=== PATIENT | male | born 1950 | race Caucasian/White ===

== ENCOUNTER 2020-10-11 06:36 | Outpatient (CLI) | payer MEDICARE, SELFPAY ==
--- NOTE | ~2020-10-11 | CT_ITS ---
EXAMINATION: CT abdomen pelvis w con DATE: 10/11/2020 07:27 INDICATION: Prostate cancer. TECHNIQUE: Computed tomography (CT) of the abdomen and pelvis was performed with 100 mL Omnipaque 350 intravenous contrast. Automated exposure control and iterative reconstruction technique were employe d. The dose-length product was 1537.78 mGy-cm. COMPARISON: None. FINDINGS: The visualized portions of the lung bases demonstrates mild atelectasis. There is a small p neumatocele in right lower lobe. There is a 4 mm nodule in right middle lobe, likely benign. A calcif ied right lung nodule is consistent with old granulomatous disease. No pleural effusion. The heart si ze is normal. There are coronary artery calcifications. No pericardial effusion. There are pacer wire s in right atrium and right ventricle. The liver demonstrates hypertrophy of left lateral segment and surface nodularity, consistent with cirrhosis. The gallbladder, spleen, and pancreas are normal. The re are masses in the adrenal glands measuring up to 2.6 cm on the right measuring soft tissue attenua tion. There is a 4.0 cm mass in right kidney measuring soft tissue attenuation. There are simple cyst s in the kidneys measuring up to 3.2 cm on the right. There are 5 stones in left kidney measuring up to 8 mm. There is a left inguinal hernia containing fat. There are no dilated loops of bowel. There i s an umbilical hernia containing a wall of nonobstructed small bowel. The appendix is normal. There i s calcified atherosclerosis of the aorta and many of the other arteries. There are no pathologically enlarged lymph nodes. There is no free intraperitoneal fluid. There is moderate lumbar spondylosis. T here are chronic bilateral L5 pars defects. There are a few scattered sclerotic lesions measuring up to 6 mm, most likely benign bone islands. IMPRESSION: 1. Sclerotic lesions of bone measuring up to 6 mm, most likely benign bone islands. 2. 4.0 cm right kidney mass, which may be a hemorrhagic cyst or less likely a neoplasm. Abdomen CT wi thout and with contrast is recommended. 3. Adrenal masses measuring up to 2.6 cm on the right, most likely adenomas. Metastatic disease is un likely, but cannot be excluded. 4. Cirrhosis of the liver. 5. Umbilical hernia containing a wall of nonobstructed small bowel. Reviewed, dictated and finalized at location B. IMPRESSION: 1. Sclerotic lesions of bone measuring up to 6 mm, most likely benign bone maribel nds. 2. 4.0 cm right kidney mass, which may be a hemorrhagic cyst or less likely a n eoplasm. Abdomen CT without and with contrast is recommended. 3. Adrenal masses measuring up to 2.6 cm on the right, most likely adenomas. Me tastatic disease is unlikely, but cannot be excluded. 4. Cirrhosis of the liver. 5. Umbilical hernia containing a wall of nonobstructed small bowel.
--- NOTE | ~2020-10-11 | NM_ITS ---
EXAMINATION: NM bone scan whole body DATE: 10/11/2020 11:55 INDICATION: Prostate cancer TECHNIQUE: 26.4 mCi Tc-99m HDP was administered intravenously. Delayed whole-body scintigrams were o btained. COMPARISON: CT abdomen and pelvis dated 10/11/2020 FINDINGS: Photopenic defect at the right knee consistent with a right total knee arthroplasty. No abnormally in creased surrounding bone uptake to suggest loosening or infection. Scattered likely degenerative join t centered uptake most prominent at the bilateral hands and feet, left knee, bilateral acromioclavicu lar and sternoclavicular joints. Increased uptake at the anterior left first rib and typical location for hypertrophic costochondral calcification. Additional likely degenerative uptake in the spine ass ociated with multilevel facet joint and multiple bridging osteophytes in the visualized mid to lower thoracic spine consistent with diffuse idiopathic skeletal hyperostosis (DISH). Small focus of mild u ptake associated with the xiphoid resulting from the anteriorly curved configuration of the xiphoid p rocess as seen on the CT images. No suspicious foci of abnormal bone uptake to suggest metastatic dis ease. There is diffuse mild increased bone and soft tissue uptake in the bilateral lower legs which s uggests decreased washout such as in the setting of venous stasis. IMPRESSION: 1. No lesion suspicious for metastatic disease. 2. Typical pattern of scattered degenerative uptake in the axial and appendicular skeleton. 3. Diffuse mildly increased uptake in the bones and soft tissues of the bilateral lower legs suggesti ng reduced washout images in the setting of venous insufficiency. Reviewed, dictated and finalized at location A. IMPRESSION: 1. No lesion suspicious for metastatic disease. 2. Typical pattern of scattered degenerative uptake in the axial and appendicul ar skeleton. 3. Diffuse mildly increased uptake in the bones and soft tissues of the bilater al lower legs suggesting reduced washout images in the setting of venous insuff iciency.
[2020-10-11 07:16] LABS: Estimated Glomerular Filt Rate > 60
== END 2020-10-11 06:37 | disposition home or self-care (01) ==
PROVIDERS: PCP Internal Medicine; Visit Provider Urology
DX: C61 Malignant neoplasm of prostate (principal); N28.89 Other specified disorders of kidney and ureter; K74.60 Unspecified cirrhosis of liver
CPT/HCPCS: 74177; 78306; A9561; Q9967

== ENCOUNTER 2020-11-06 08:17 | Outpatient (CLI) | payer MEDICARE, SELFPAY ==
--- NOTE | ~2020-11-06 | CT_ITS ---
EXAMINATION: CT abdomen wo/w con EXAM DATE: 11/06/2020 08:57 INDICATION: Renal mass, hemorrhagic cyst versus solid mass on recent CT. Prostate cancer. TECHNIQUE: Spiral CT of the abdomen was performed without and then with intravenous injection of 100 mL Omnipaque 350. Axial, coronal and sagittal images of the abdomen were reviewed. The dose-length product (DLP) for this examination was 2039.18 mGy-cm. The exposure was tailored according to patie nt size (auto mA exposure control), and iterative reconstruction (ASIR) was used as additional dose r eduction technique. Correlation is made to head CT 10/11/2020. FINDINGS: Noncontrast CT demonstrates bilateral nephrolithiasis, with 6 mm left inferior calyceal sto ne, and several other punctate bilateral calyceal stones. There are bilateral renal cysts and hemorrh agic cysts which are exophytic, measuring up to 3.8 cm on the right. No suspicious renal lesions. No hydronephrosis. Possible cirrhosis. There is 2.7 cm right adrenal mass, and 1.6 cm left adrenal mass, both are low at tenuation on noncontrast study consistent with adenomas. Spleen, pancreas are unremarkable. Gallblad radha is unremarkable. No biliary obstruction. There is no retroperitoneal lymphadenopathy. Ther e is moderate scattered arteriosclerotic disease. The stomach and small bowel are unremarkable. There is expected amount of colonic stool. No free i ntraperitoneal gas. Cardiac pacemaker/AICD leads. Large calcified right lower lobe granuloma. Some dependent groundglass opacity probably atelectasis. There are no osteoblastic or osteolytic lesions identified. IMPRESSION: 1. Bilateral renal cysts. 2. Possible cirrhosis. 3. Adrenal adenomas. Reviewed, dictated and finalized at location A.
== END 2020-11-06 08:18 | disposition home or self-care (01) ==
LOC: ANHIMG 08:22
PROVIDERS: PCP Internal Medicine; Visit Provider Urology
DX: N28.1 Cyst of kidney, acquired (principal); D35.00 Benign neoplasm of unspecified adrenal gland
CPT/HCPCS: 74170; Q9967

== ENCOUNTER 2023-01-27 01:52 | Day surgery (SDC) | payer MEDICARE, SELFPAY ==
[2023-01-13 14:16] VITALS: BMI 44.3
--- NOTE | 2023-01-24 16:07 | PM.HPGS ---
History of Present Illness History of Present Illness Consent: Risks, benefits, and alternatives have been discussed and questions answered. Patient agrees to proceed with procedure. Chief complaint: other fecal abnormalities Narrative: Hardik Castellon is a 72 year old male Was referred for colon cancer screening. His last colonoscopy was 9 years ago. Recent Cologuard test was positive. Review of Systems Review of Systems: All systems reviewed & are unremarkable except as noted in HPI and below PMFSH Social History Social History Smoking packs per day: 1 Smoking cigarettes per day: 20.0 Smoking status: Former smoker Tobacco type: cigarettes Living arrangements: with family Meds Home Medications and Allergies Home Medications Medication Instructions Recorded Confirmed Type apixaban 5 mg tablet (Eliquis) 5 mg PO DAILY 01/13/23 01/27/23 History atorvastatin 20 mg tablet 20 mg PO DAILY 01/13/23 01/27/23 History furosemide 40 mg tablet 40 mg PO DAILY 01/13/23 01/27/23 History glimepiride 4 mg tablet 4 mg PO DAILY 01/13/23 01/27/23 History hydralazine 25 mg tablet 25 mg PO DAILY 01/13/23 01/27/23 History insulin glargine U-300 conc 300 40 unit subcut BID 01/13/23 01/27/23 History unit/mL (3 mL) subcutaneous pen (Toujeo Max U-300 SoloStar) isosorbide dinitrate 10 mg tablet 10 mg PO DAILY 01/13/23 01/27/23 History metformin 1,000 mg tablet 1,000 mg PO DAILY 01/13/23 01/27/23 History potassium citrate 10 mEq (1,080 1,080 meq PO DAILY 01/13/23 01/27/23 History mg) tablet,extended release valsartan 320 mg tablet 320 mg PO DAILY 01/13/23 01/27/23 History Allergies Allergy/AdvReac Type Severity Reaction Status Date / Time No Known Allergies Allergy Verified 01/27/23 06:48 Exam Const: General: alert Orientation/consciousness: patient oriented x3 Resp: Auscultation: clear to auscultation bilaterally Cardio: Rhythm: regular rhythm GI: GI Palp: Yes Soft to palpation and No Tenderness to palpation present (GI) Neuro: General: patient oriented x3 Assessment and Plan Assessment and plan (1) Colon cancer screening: Code(s): Z12.11 - Encounter for screening for malignant neoplasm of colon Status: Acute Assessment and Plan: Colonoscopy with possible biopsy or polypectomy or cautery or injection of substances.
[2023-01-27 06:55] VITALS: BP 135/61; PULSE 88; RESP 22; TEMP 35.9; O2SAT 94
[2023-01-27] MEDS: LACTATED RINGERS 1,000 ML 150 ML IV CONT (07:08)
[2023-01-27 07:09] LABS: Glucose Point of Care 171 mg/dl (65-105)
--- NOTE | 2023-01-27 07:44 | P.PNAN_ITS ---
Anes - Initial Pre Proc Eval Procedure: Operation Date: 01/27/23 08:00 Proposed Procedures p Colonoscopy - Lester Vaca MD Date/Time: 01/27/23 07:44 Surgeon: Lester Vaca MD Pre Op Diagnosis: other fecal abnormalities Patient Data Age: 72 Gender: M Height: 1.83 m Weight: 147.3 kg Last Vital Signs Temp 96.7 F L 01/27/23 06:55 Pulse 88 01/27/23 06:55 Resp 22 H 01/27/23 06:55 BP 135/61 01/27/23 06:55 Pulse Ox 94 01/27/23 06:55 O2 Del Method Room Air 01/27/23 06:55 Allergies Allergy/AdvReac Type Severity Reaction Status Date / Time No Known Allergies Allergy Verified 01/27/23 06:48 Home Medications Medication Instructions Recorded Confirmed Type apixaban 5 mg tablet (Eliquis) 5 mg PO DAILY 01/13/23 01/27/23 History atorvastatin 20 mg tablet 20 mg PO DAILY 01/13/23 01/27/23 History furosemide 40 mg tablet 40 mg PO DAILY 01/13/23 01/27/23 History glimepiride 4 mg tablet 4 mg PO DAILY 01/13/23 01/27/23 History hydralazine 25 mg tablet 25 mg PO DAILY 01/13/23 01/27/23 History insulin glargine U-300 conc 300 40 unit subcut BID 01/13/23 01/27/23 History unit/mL (3 mL) subcutaneous pen (Toujeo Max U-300 SoloStar) isosorbide dinitrate 10 mg tablet 10 mg PO DAILY 01/13/23 01/27/23 History metformin 1,000 mg tablet 1,000 mg PO DAILY 01/13/23 01/27/23 History potassium citrate 10 mEq (1,080 1,080 meq PO DAILY 01/13/23 01/27/23 History mg) tablet,extended release valsartan 320 mg tablet 320 mg PO DAILY 01/13/23 01/27/23 History Laboratory Tests 01/27/23 07:05 POC Capillary Glucose 171 H mg/dl (65-105) Patient hx anesthesia problems: none Family hx anesthesia problems: none Results Review: All pre-operative results and documents have been reviewed as part of the pre- operative evaluation. [facility] Social History Social History Smoking packs per day: 1 Smoking cigarettes per day: 20.0 Smoking status: Former smoker Tobacco type: cigarettes Living arrangements: with family Froylan Granados Final PreProcedure Day of Procedure 01/27/23 07:44 Patient weight: morbidly obese Heart: regular rate and rhythm Lungs: clear to auscultation Airway: Mallampati scale class III Neurological: alert and oriented Last oral intake: >/= 8 hours ASA classification: IV Emergent: no Anesthetic plan: proceed Anesthesia type and monitoring: general GIVS and standard monitoring Results Review: All pre-operative results and documents have been reviewed as part of the pre- operative evaluation. Informed Consent: The patient's anesthetic plan and its attendant risks and benefits were d iscussed with the patient/family/POA. Questions were solicited and answers provided to the satisfaction of the patient/family/POA.
[2023-01-27 08:12] VITALS: BP 126/66; PULSE 87; RESP 22; O2SAT 94
[2023-01-27 08:22] VITALS: BP 135/68; PULSE 84; RESP 24; O2SAT 93
[2023-01-27 08:32] VITALS: BP 132/69; PULSE 81; RESP 23; O2SAT 94
[2023-01-27 08:46] LABS: Glucose Point of Care 163 mg/dl (65-105)
== END 2023-01-27 08:45 | disposition home or self-care (01) ==
PROVIDERS: PCP Internal Medicine; Visit Provider Internal Medicine Gastroenterology
PROC: 0DJD8ZZ Inspection of Lower Intestinal Tract, Via Natural or Artificial Opening Endoscopic (ICD-10-PCS; CPT 45378; principal; 2023-01-27 08:00)
DX: Z12.11 Encounter for screening for malignant neoplasm of colon (principal); R19.5 Other fecal abnormalities; K64.8 Other hemorrhoids; K57.30 Diverticulosis of large intestine without perforation or abscess without bleeding; Z87.891 Personal history of nicotine dependence
CPT/HCPCS: G0121; 82948; J2704; J7120

== ENCOUNTER 2023-05-08 03:37 | Day surgery (SDC) | payer MEDICARE, SELFPAY ==
[2023-04-29 14:29] VITALS: BMI 44.6
--- NOTE | 2023-05-06 10:50 | SUR.PREOP ---
Patient called regarding upcoming procedure. Reviewed preop instructions, appointment times, and procedure prep.
--- NOTE | 2023-05-07 15:40 | PM.HPGS ---
History of Present Illness History of Present Illness Consent: Risks, benefits, and alternatives have been discussed and questions answered. Patient agrees to proceed with procedure. Chief complaint: Anemia,unspecified Narrative: Hardik Castellon is a 73 year old male Referred for EGD because of anemia. He did have a colonoscopy few months ago which was unremarkable. He had a positive Cologuard. Only internal hemorrhoids and diverticulosis was found on The colonoscopy. Review of Systems Review of Systems: All systems reviewed & are unremarkable except as noted in HPI and below PMFSH Social History Social History Smoking packs per day: 1 Smoking cigarettes per day: 20.0 Smoking status: Former smoker Tobacco type: cigarettes Alcohol intake: current Substance use: never Substance use type: does not use Living arrangements: with family Spiritual care concerns: No Meds Home Medications and Allergies Home Medications Medication Instructions Recorded Confirmed Type apixaban 5 mg tablet (Eliquis) 5 mg PO DAILY 01/13/23 04/29/23 History atorvastatin 20 mg tablet 20 mg PO DAILY 01/13/23 04/29/23 History furosemide 40 mg tablet 40 mg PO DAILY 01/13/23 04/29/23 History glimepiride 4 mg tablet 4 mg PO DAILY 01/13/23 04/29/23 History hydralazine 25 mg tablet 25 mg PO DAILY 01/13/23 04/29/23 History insulin glargine U-300 conc 300 40 unit subcut BID 01/13/23 04/29/23 History unit/mL (3 mL) subcutaneous pen (Toujeo Max U-300 SoloStar) isosorbide dinitrate 10 mg tablet 10 mg PO DAILY 01/13/23 04/29/23 History metformin 1,000 mg tablet 1,000 mg PO DAILY 01/13/23 04/29/23 History potassium citrate 10 mEq (1,080 1,080 meq PO DAILY 01/13/23 04/29/23 History mg) tablet,extended release valsartan 320 mg tablet 320 mg PO DAILY 01/13/23 04/29/23 History Allergies Allergy/AdvReac Type Severity Reaction Status Date / Time No Known Allergies Allergy Verified 01/27/23 06:48 Exam Const: General: alert Orientation/consciousness: patient oriented x3 Resp: Auscultation: clear to auscultation bilaterally Cardio: Rhythm: regular rhythm GI: GI Palp: Yes Soft to palpation and No Tenderness to palpation present (GI) Neuro: General: patient oriented x3 Assessment and Plan Assessment and plan (1) Iron deficiency anemia: Code(s): D50.9 - Iron deficiency anemia, unspecified Status: Acute Assessment and Plan: EGD with possible biopsy or dilatation or cautery.
[2023-05-08 08:45] LABS: Glucose Point of Care 116 mg/dl (65-105)
[2023-05-08 08:49] VITALS: BP 138/64; PULSE 84; RESP 26; TEMP 36.1; O2SAT 96
[2023-05-08] MEDS: LACTATED RINGERS 1,000 ML 150 ML IV CONT (08:53)
--- NOTE | 2023-05-08 09:05 | WPDANESEPPF ---
Anes - Initial Pre Proc Eval Procedure: Operation Date: 05/08/23 09:30 Proposed Procedures p Esophagogastroduodenoscopy - Lester Vaca MD Date/Time: 05/08/23 09:05 Surgeon: Lester Vaca MD Pre Op Diagnosis: Anemia,unspecified Patient Data Age: 73 Gender: M Height: 1.83 m Weight: 152 kg Last Vital Signs Temp 97 F L 05/08/23 08:49 Pulse 84 05/08/23 08:49 Resp 26 H 05/08/23 08:49 BP 138/64 05/08/23 08:49 Pulse Ox 96 05/08/23 08:49 O2 Del Method Nasal Cannula 05/08/23 08:49 O2 Flow Rate 4 05/08/23 08:49 Allergies Allergy/AdvReac Type Severity Reaction Status Date / Time No Known Allergies Allergy Verified 05/08/23 08:45 Home Medications Medication Instructions Recorded Confirmed Type apixaban 5 mg tablet (Eliquis) 5 mg PO DAILY 01/13/23 04/29/23 History atorvastatin 20 mg tablet 20 mg PO DAILY 01/13/23 04/29/23 History furosemide 40 mg tablet 40 mg PO DAILY 01/13/23 04/29/23 History glimepiride 4 mg tablet 4 mg PO DAILY 01/13/23 04/29/23 History hydralazine 25 mg tablet 25 mg PO DAILY 01/13/23 04/29/23 History insulin glargine U-300 conc 300 40 unit subcut BID 01/13/23 04/29/23 History unit/mL (3 mL) subcutaneous pen (Toujeo Max U-300 SoloStar) isosorbide dinitrate 10 mg tablet 10 mg PO DAILY 01/13/23 04/29/23 History metformin 1,000 mg tablet 1,000 mg PO DAILY 01/13/23 04/29/23 History potassium citrate 10 mEq (1,080 1,080 meq PO DAILY 01/13/23 04/29/23 History mg) tablet,extended release valsartan 320 mg tablet 320 mg PO DAILY 01/13/23 04/29/23 History Laboratory Tests 05/08/23 08:43 POC Capillary Glucose 116 H mg/dl (65-105) Patient hx anesthesia problems: none Family hx anesthesia problems: none Results Review: All pre-operative results and documents have been reviewed as part of the pre-operative evaluation. [facility] Social History Social History Smoking packs per day: 1 Smoking cigarettes per day: 20.0 Smoking status: Former smoker Tobacco type: cigarettes Alcohol intake: current Substance use: never Substance use type: does not use Living arrangements: with family Spiritual care concerns: No Anes - Eval Final PreProcedure Day of Procedure 05/08/23 09:05 Patient weight: morbidly obese Heart: regular rate and rhythm Lungs: clear to auscultation Airway: Mallampati scale class III Neurological: alert and oriented Last oral intake: >/= 8 hours ASA classification: IV Emergent: no Anesthetic plan: proceed Anesthesia type and monitoring: general GIVS and standard monitoring Results Review: All pre-operative results and documents have been reviewed as part of the pre-operative evaluation. Informed Consent: The patient's anesthetic plan and its attendant risks and benefits were discussed with the patient/family/POA. Questions were solicited and answers provided to the satisfaction of the patient/family/POA.
--- NOTE | 2023-05-08 09:34 | SUR.PREOP ---
0930: PT CALLED NURSE TO ROOM AND STATED HE WAS HAVING CHEST TIGHTNESS, GENE BANKS AND DR CASTAÑEDA MADE AWARE AND AT BEDSIDE WITH PT, PT PLACED ON MONITOR, VITAL SIGNS 145/71, 92% ON 4L, 83, 22, NO NEW ORDERS RECEIVED.
--- NOTE | 2023-05-08 09:47 | SUR.OPER ---
HOB lowered for EGD and patient states I can't breathe and O2 sat 84% on 10 liters while laying flat. Had to sit with HOB at 90 degrees to recover. Procedure cancelled per Dr. Vaca and Dr. Griffith.
[2023-05-08 09:57] VITALS: BP 146/81; PULSE 90; RESP 29; O2SAT 96
--- NOTE | 2023-05-08 10:00 | SUR.PHASEII ---
Significant other Mirta notified of patient status by Merna SANTOS. Patient taken to ED via stretcher with staff.
--- NOTE | 2023-05-08 10:02 | SUR.PHASEII ---
Patient to ED for c/o chest tightness and shortness of breath.
--- NOTE | 2023-05-08 10:18 | SUR.OPER ---
Laura- patients family- and the patients clothes and home oxygen tank were taken to the ER.
== END 2023-05-08 10:02 | disposition home or self-care (01) ==
PROVIDERS: PCP Internal Medicine; Visit Provider Internal Medicine Gastroenterology
PROC: 0DJ08ZZ Inspection of Upper Intestinal Tract, Via Natural or Artificial Opening Endoscopic (ICD-10-PCS; CPT 43235; principal; 2023-05-08 09:30)
DX: D50.9 Iron deficiency anemia, unspecified (principal); R07.89 Other chest pain; R06.02 Shortness of breath; Z53.09 Procedure and treatment not carried out because of other contraindication; Z79.84 Long term (current) use of oral hypoglycemic drugs
CPT/HCPCS: 82948; 99215; G0463; J7120

== ENCOUNTER 2023-05-08 10:06 | Inpatient (IN) | payer MEDICARE, SELFPAY ==
[2023-05-08] VITALS (14 sets, daily range): BP systolic 131–161; BP diastolic 63–94; PULSE 81–99; RESP 19–33; TEMP 36.4–37.1; O2SAT 10–96; BMI 50.2
--- NOTE | ~2023-05-08 | XR_ITS ---
[id number] 05/09/2023 14:25 Indication: Status post thoracentesis Procedure: AP portable chest Comparison: 05/08/2023 Findings: No pneumothorax identified. There is pulmonary edema. Bilateral pleural effusions, left gre ater than right. Impression: 1: Pulmonary edema with bilateral pleural effusions, left greater than right. Reviewed, dictated and finalized at location B. EQUIPMENT SERVICE TECHNICIAN Impression: 1: Pulmonary edema with bilateral pleural effusions, left greater than right.
--- NOTE | ~2023-05-08 | US_ITS ---
EXAMINATION: US thoracentesis DATE: 05/09/2023 14:26 INDICATION: Left pleural effusion TECHNIQUE: The procedure and its risks and benefits were discussed with the patient. Potential risks discussed included bleeding, infection, and pneumothorax. The patient understood the risks and agreed to proceed. The skin was prepped and draped in sterile fashion. 1% lidocaine was used for local anes thesia. Under ultrasound guidance, a 5 Fr catheter with trochar was advanced into the left pleural ef fusion. Fluid was aspirated. The catheter was removed, and a dressing was applied. There were no imme diate complications. FINDINGS: Ultrasound images demonstrate a left pleural effusion and the catheter within the fluid. IMPRESSION: 1. Successful ultrasound-guided thoracentesis yielding 1100 mL of dark yellow fluid. Reviewed, dictated and finalized at location A. K HOLDER
--- NOTE | ~2023-05-08 | XR_ITS ---
XR chest 1V portable 05/08/2023 10:50 Indication: Shortness of breath Procedure: AP portable chest Comparison: No prior studies for comparison. Findings: Cardiomegaly with interstitial edema. Pacemaker leads are stable. Bilateral pleural effusio ns, left greater than right. No pneumothorax. No acute osseous abnormality. Impression: 1: Cardiomegaly with pulmonary edema. 2: Bilateral pleural effusions, left greater than right. Reviewed, dictated and finalized at location L. [employer]ATION Impression: 1: Cardiomegaly with pulmonary edema. 2: Bilateral pleural effusions, left greater than right.
--- NOTE | 2023-05-08 10:12 | ECG_ITS ---
Measurements Intervals [place] Rate: 86 P: 22 [place]: 151 QRS: -61 QRSD: 184 T: 105 QT: 424 QTc: 507 Interpretive Statements PROBABLE sINUS RHYTHM WITH POSSIBLE eLECTRONIC VENTRICULAR PACEMAKER ABNORMAL RHYTHM ECG NO PREVIOUS ECG AVAILABLE FOR COMPARISON Electronically Signed On 05-08-2023 19:13:39 HOSPICE SUPERINTENDENT by Sharron Turcios M.D.
--- NOTE | 2023-05-08 10:20 | ED.SOB ---
HPI - SOB/Dyspnea General Chief Complaint: Shortness of Breath/Dyspnea Stated Complaint: dyspnea Time Seen by Provider: 05/08/23 10:11 History of Present Illness HPI Narrative: [age] male presented to emergency department for evaluation of worsening shortness of breath. Patient was GI lab having a procedure when he had acute worsening of his shortness of breath. Patient does have history of hypertension COPD and paroxysmal AFib. Patient was diagnosed with a pneumonia approximately 2 weeks ago when he was hospitalized at [facility]. Since being discharged patient has been on 4 L of oxygen. When patient was having his procedure today his O2 requirement increased to 8 L and patient was transported to the emergency department for evaluation of respiratory distress. Upon arrival to the ED patient was getting an Albuterol treatment and patient does feel improved after the treatment. Related Data Home Medications Medication Instructions Recorded Confirmed apixaban 5 mg tablet (Eliquis) 5 mg PO BID 01/13/23 05/08/23 atorvastatin 20 mg tablet 20 mg PO DAILY 01/13/23 05/08/23 furosemide 40 mg tablet 40 mg PO DAILY 01/13/23 05/08/23 glimepiride 4 mg tablet 4 mg PO BID 01/13/23 05/08/23 hydralazine 25 mg tablet 25 mg PO TID 01/13/23 05/08/23 insulin glargine U-300 conc 300 40 unit subcut BID 01/13/23 05/08/23 unit/mL (3 mL) subcutaneous pen (Toujeo Max U-300 SoloStar) isosorbide dinitrate 10 mg tablet 10 mg PO TID 01/13/23 05/08/23 metformin 1,000 mg tablet 1,000 mg PO BID 01/13/23 05/08/23 potassium citrate 10 mEq (1,080 1,080 meq PO TID 01/13/23 05/08/23 mg) tablet,extended release valsartan 320 mg tablet 320 mg PO DAILY 01/13/23 05/08/23 pantoprazole 40 mg tablet,delayed 40 mg PO BID 05/08/23 05/08/23 release Allergies Allergy/AdvReac Type Severity Reaction Status Date / Time No Known Allergies Allergy Verified 05/08/23 08:45 Review of Systems Review of Systems: All systems reviewed & are unremarkable except as noted in HPI and below PMFSH Social History Social History Smoking packs per day: 1 Smoking cigarettes per day: 20.0 Smoking status: Former smoker Tobacco type: cigarettes Smoking end date: 05/08/23 Alcohol intake: current Substance use: never Substance use type: does not use Lack of Transportation: No Lack of Food: Never True Current Housing: I Have Housing Concerned About Future Housing: No Difficulty Paying Gas/Electric Bills: No Difficulty Paying for Meds: No Currently Unemployed: No Education: High School Diploma/GED Difficulty w/ Childcare or Family Care: No Living arrangements: with family Spiritual care concerns: No Exam Narrative: APPEARANCE: respiratory distress upon arrival but patient was well appearing after recovering. HEAD: normocephalic, atraumatic. EYES: PERRLA/EOMI, conjunctivae clear. NOSE: Normal no drainage EARS:TMS clear with good light reflex. THROAT: Pharynx clear, no exudate. NECK: Supple. No adenopathy, no masses. RESPIRATORY: Airway patent, respirations nonlabored. Rhonchi bilaterally CARDIOVASCULAR: Regular rate and rhythm without murmurs rubs or gallops. ABDOMINAL: Soft, nontender, nondistended, normal bowel sounds MUSCULOSKELETAL: Moves all extremities. significant edema NEURO: Alert. Cranial nerves II through XII intact. grossly intact SKIN: Warm, dry. Normal Color Course Course Emergency Course: 73-year-old male presents emergency department for evaluation of respiratory distress that started while he was in the GI lab. Patient does have an O2 requirement of 4 L but required an O2 level of 8 L while in the GI lab. Patient did improve upon arrival to the ED. Patient did cough up a significant amount of phlegm and patient was treated with a breathing treatment. Patient is afebrile with no leukocytosis and a stable hemoglobin of 10.9. No signific
[2023-05-08 10:22] LABS: Alveolar/Arterial O2 Gradient 121.7 mmHg; Carboxyhemoglobin 0.7 % THb (0-2.0); Device NASAL CANNULA; Fractional Inspired Oxygen 36 %; HCO3 ABG 31.6 mEq/l (22.0-26.0); Methemoglobin ABG 0.2 %THb (0-1.5); Modified Allen's Test Pass; Oxygen Content ABG 15.3 %vol (16.0-22.0); PCO2 ABG 56.5 mmHg (35.0-45.0); PO2 ABG 69.4 mmHg (80.0-100.0); PO2 FiO2 Ratio Arterial Blood 1.93 %; Reduced Hemoglobin 8.1 %THb (0-5.0); Site Drawn RIGHT RADIAL; Total Hemoglobin 11.9 g/dL (12.0-18.0); pH ABG 7.366 (7.350-7.450)
[2023-05-08 11:21] LABS: Basophils Percent Auto 0.8 % (0.2-1.2); Eosinophils Absolute Auto 0.1 K/mm3 (0-0.3); Eosinophils Percent Auto 2.5 % (0-4.4); Hematocrit 36.5 % (42.0-52.0); Hemoglobin 10.9 g/dL (14.0-18.0); Immature Granulocyte Absolute 0.01 K/mm3 (0.00-0.031); Immature Granulocyte Percent A 0.3 % (0-0.5); Immature Platelet Fraction Pct 4.2 % (0.9-11.2); Lymphocytes Percent Auto 13.7 % (18.3-44.2); Mean Corpuscular HGB Conc 29.9 g/dl (32-36); Mean Corpuscular Hemoglobin 28.2 pg (26-34); Mean Corpuscular Volume 94.6 fl (80-100); Mean Platelet Volume 10.9 fl (7.4-10.4); Monocytes Absolute Auto 0.3 K/mm3 (0.1-0.6); Monocytes Percent Auto 9.3 % (2.6-8.5); Neutrophils Absolute Auto 2.7 K/mm3 (1.3-6.7); Neutrophils Percent Auto 73.4 % (45.5-73.1); Platelet Count Result 125 k/mm3 (150-375); Red Blood Count 3.86 M/mm3 (4.6-6.20); Red Cell Distribution Width 15.3 % (11.5-14.5); White Blood Count 3.7 K/mm3 (4.5-10.0)
[2023-05-08 11:31] LABS: Alanine Aminotransferase 32 U/L (6-50); Albumin Level 3.7 g/dL (3.5-5.1); Alkaline Phosphatase 76 U/L (38-126); Anion Gap 5 mmol/L (8-16); Aspartate Amino Transferase 35 U/L (17-59); Bilirubin,Total 0.5 mg/dL (0.2-1.3); Blood Urea Nitrogen 18 mg/dL (9-20); Carbon Dioxide 38 mmol/L (22-30); Chloride 99 mmol/L (98-107); Estimated CRCL calculation 118 ml/min; Estimated Glomerular Filt Rate > 60; Glucose 124 mg/dL (65-110); INR 1.1; Magnesium 1.9 mg/dL (1.6-2.3); Potassium 3.9 mmol/L (3.4-5.0); Prothrombin Time 14.3 Seconds (11.1-14.7); Sodium 142 mmol/L (137-145)
[2023-05-08 11:32] LABS: Partial Thromboplastin Time 25.9 SECONDS (22.3-36.8)
[2023-05-08 11:39] LABS: Hypochromasia 1+ (NORMAL); NT Pro B Type Natriuretic Pept 1060 pg/mL (19.9-100); Platelet Estimate Adequate (Adequate); Schistocytes None Seen (NORMAL)
[2023-05-08 12:05] LABS: Appearance Urine Clear (Clear); Bacteria Urine None Seen /hpf; Bilirubin Urine Negative (Negative); Blood Urine Negative (Negative); Color Urine Yellow (Yellow); Glucose Urine UA Negative (Negative); Ketones Urine Negative (Negative); Leukocyte Esterase Ur Negative LEU/UL (Negative); Nitrate Urine Negative (Negative); Non Pathogenic Casts 0-2; Protein Urine 1+ mg/dL (Negative); RBC Urine 0-2 /hpf (0-2); Specific Grav Ur 1.024 (1.001-1.035); Squamous Epithelial Cell Urine None seen /hpf (Few); WBC Urine 0-5 /hpf
[2023-05-08 12:17] LABS: Add Urine Microscopic? YES
[2023-05-08 12:26] LABS: Lactic Acid Reflex 1.7 mmol/L (0.7-2.0)
[2023-05-08 12:31] LABS: Influenza A QL RT-PCR Negative (Negative); Influenza B QL RT-PCR Negative (Negative); RSV RNA, RT-PCR Negative (Negative); SARS-CoV-2 RNA PCR Negative (Negative)
[2023-05-08] MEDS: FUROSEMIDE INJ 40 MG/4 ML VIAL IV PUSH ×2 (12:41→20:31)
--- NOTE | 2023-05-08 12:49 | PC.NURSE ---
WENT INTO ROOM TO GIVE PT HIS DISCHARGE PAPERS AND HE REPORTED THAT HE FELT LIKE HE WAS FILLING UP AGAIN. HE TALKED WITH HIS IN ROOM AND SON ON THE PHONE AND DECIDED TO STAY FOR ADMISSION AND DIURESIS. DR EDWARDS WAS MADE AWARE.
[2023-05-08 16:50] LABS: Glucose Point of Care 253 mg/dl (65-105)
--- NOTE | 2023-05-08 18:01 | PM.IMHP ---
H&P: HPI History of Present Illness Date/Time: 05/08/23 18:01 Chief Complaint: Respiratory Distress Narrative: 73 y/o M presents here with respiratory distress and hypoxia with PMH of JANETTE, HTN, DM, CHF, COPD, NANETTE (uses CPAP), and dyslipidemia. Patient presented to the emergency department from the GI lab with respiratory distress and hypoxia. Patient had outpatient EGD scheduled for today for further workup of his anemia. Prior to procedure initiation, patient was 96% on 4L NS. While patient was lying flat for procedure he became distressed and oxygen saturation reduced to 80% while on 4L NC. Supplemental O2 increased to 8-10L. Arrived to ED Patient with improved sat, 96% and expiratory wheezing. Initially given breathing treatment and patient was able to cough up a significant amount of phlegm, respiratory effort and wheezing resolved. Patient then was able to report that he was seen 1 month ago at hospital in [place], was diagnosed and treated for pneumonia. After discharge from this admission he required 4L nasal cannula, continuous. No previous supplemental oxygen requirement. Patient denies chest pain or palpitations with respiratory distress, did endorse some chest tightness that only occurred with the shortness of breath. He reports that lately the dyspnea worsens with activity and lying flat. It is alleviated with his home nebulizers. After supplemental O2 was prescribed, he stopped using his CPAP at night. Also reported increased BLE edema with weeping over the last 2 weeks. ED workup revealed a normal WBC, stable hemoglobin, no chemistry derangements, BNP of 1060, and CXR showed cardiomegaly with pulmonary edema and bilateral pleural effusions, left greater than right. After neb treatment and lasix, patient overall felt improved and requested d/c. However O2 became dislodged and patient's O2 sat rapidly decompensated. Patient then elected to stay for further workup. Review of Systems Review of Systems: All systems reviewed & are unremarkable except as noted in HPI and below PMFSH Past Medical History Medical History (Updated 05/08/23 @ 22:20 by Kaylan Aguirre APRN) CHF (congestive heart failure) COPD (chronic obstructive pulmonary disease) DM2 (diabetes mellitus, type 2) Dyslipidemia Former smoker HTN (hypertension) Iron deficiency anemia NANETTE (obstructive sleep apnea) Surgical History Surgical History (Updated 05/08/23 @ 21:58 by Kaylan Aguirre APRN) History of knee replacement bilateral Social History Social History (Updated 05/08/23 @ 21:59 by Kaylan Aguirre APRN) Social History: Lives at home alone with his dog. . Elects Laura Goins, girlfriend, as surrogate decision maker. Code Status: Full Code. Smoking packs per day: 1 Smoking cigarettes per day: 20.0 Smoking status: Former smoker Tobacco type: cigarettes Smoking end date: 05/08/23 Alcohol intake: current Substance use: never Substance use type: does not use Lack of Transportation: No Lack of Food: Never True Current Housing: I Have Housing Concerned About Future Housing: No Difficulty Paying Gas/Electric Bills: No Difficulty Paying for Meds: No Currently Unemployed: No Education: High School Diploma/GED Difficulty w/ Childcare or Family Care: No Living arrangements: with family Spiritual care concerns: No Meds Home Medications and Allergies Home Medications Medication Instructions Recorded Confirmed Type apixaban 5 mg tablet (Eliquis) 5 mg PO BID 01/13/23 05/08/23 History atorvastatin 20 mg tablet 20 mg PO DAILY 01/13/23 05/08/23 History furosemide 40 mg tablet 40 mg PO DAILY 01/13/23 05/08/23 History glimepiride 4 mg tablet 4 mg PO BID 01/13/23 05/08/23 History hydralazine 25 mg tablet 25 mg PO TID 01/13/23 05/08/23 History insulin glargine U-300 conc 300 40 unit subcut BID 01/13/23 05/08/23 History unit/mL (3 mL) subcutaneous pen (Toujeo Max U-300 SoloStar)
--- NOTE | 2023-05-08 19:03 | PC.NURSE ---
1530 This patient, Hardik Castellon, was admitted to IMU status, and placed in Intensive Care Unit-10. Patient/family oriented to hospital policies and general routines including ID bracelet, bed and alarms, visiting hours, pain management, procedures, bathroom and other care routines, personal items, smoking policy, room service/diet, and visiting hours. Valuables list has been completed. Information on how to activate the Rapid Response Team has been discussed. Patient/Family are encouraged to report perceived risks to care and to ask questions if they do not understand what they are told or what they should do.
[2023-05-08] MEDS: PANTOPRAZOLE 40 MG TABLET PO (20:31)
[2023-05-08 20:35] LABS: Hemoglobin A1C 6.5 % (<5.7)
[2023-05-08 20:38] LABS: Glucose Point of Care 236 mg/dl (65-105)
[2023-05-08] MEDS: ALBUTEROL SULFATE NEB 2.5 MG/3 ML INH INHALATION ×2 (21:21→21:22)
[2023-05-08] MEDS: INSULIN ASPART (*BKC) 100 UNITS/ML SUB-Q (21:47)
[2023-05-09] VITALS (25 sets, daily range): BP systolic 111–144; BP diastolic 46–79; PULSE 67–92; RESP 18–20; TEMP 36.3–36.4; O2SAT 93–97
--- NOTE | 2023-05-09 | ECHO_ITS ---
Patient Info Name: Hardik Castellon Age: 73 years : 1950 Gender: Male Ht: 72 in Wt: 370 lbs BSA: 3.01 m2 HR: 77 bpm BP: 139 / 66 mmHg Technical Quality: Poor Exam Date: 05/09/2023 3:29 PM Exam Location: Echo Lab Patient Status: Inpatient Admit Date: 05/09/2023 Staff Ordering Physician: Kaylan Aguirre APRN [place]: Rosalina Granados RDCS Attending Provider: Elizabeth Shen MD Referring Physician: Timothy HAMMOND; Exam Type: CA echo dop color flow w con Study Info Indications - worsening fluid overload, hx of chf Complete two-dimensional, color flow and Doppler transthoracic echocardiogram is performed with contrast to opacify the left ventricle and to improve the deliniation of the left ventricle endocardial borders. Contrast/Agitated Saline Contrast/Ag. Saline: Definity Amount: 2.00 ml Administered By: Rosalina Granados RDCS Existing IV Access: Yes IV Access Condition: patent with no signs of infiltration Summary 1. Definity contrast administered improved wall motion interpretation. 2. Left ventricular chamber dimension is moderately enlarged. 3. Left ventricular systolic function is mildly reduced, estimated at 45-50%. 4. The left ventricular diastolic function is grade I diastolic dysfunction. 5. E/e' 17 is elevated. 6. Linear artifact in right ventricle suggestive of catheter(s), pacemaker lead(s), or ICD lead(s). 7. Left atrial chamber dimension is mildly enlarged. 8. Right atrial chamber dimension is moderately enlarged. 9. Linear artifact in the right atrium suggestive of catheter(s), pacemaker lead(s), or ICD lead(s). 10. There is moderate aortic valve sclerosis. 11. By visual estimation there is moderate aortic valve stenosis with a peak velocity of 341.19 cm/s, mean gradient of 25 mmHg, and aortic valve area of 0.78 cm2. 12. The mitral valve has moderately calcified annulus. 13. No pulmonary hypertension, estimated pulmonary arterial systolic pressure is 28 mmHg. 14. Normal inferior vena cava with <50% collapse upon inspiration consistent with elevated right atrial pressure, 10 mmHg. 15. There is trivial pericardial effusion. 16. Pleural effusion. Left Ventricle E/e' 17 is elevated. Definity contrast administered improved wall motion interpretation. Left ventricular chamber dimension is moderately enlarged. Left ventricular systolic function is mildly reduced, estimated at 45-50%. The left ventricular diastolic function is grade I diastolic dysfunction. Right Ventricle Right ventricular systolic function is normal and with normal TAPSE 2.4 cm. Linear artifact in right ventricle suggestive of catheter(s), pacemaker lead(s), or ICD lead(s). Right ventricular chamber dimension is normal. Left Atria Left atrial chamber dimension is mildly enlarged. Right Atria Linear artifact in the right atrium suggestive of catheter(s), pacemaker lead(s), or ICD lead(s). Right atrial chamber dimension is moderately enlarged. Aortic Valve By visual estimation there is moderate aortic valve stenosis with a peak velocity of 341.19 cm/s, mean gradient of 25 mmHg, and aortic valve area of 0.78 cm2. The aortic valve is trileaflet. There is moderate aortic valve sclerosis. There is no aortic valve regurgitation. Pulmonic Valve There is no pulmonic regurgitation. Mitral Valve The mitral valve has moderately calcified annulus. There is no mitral valve stenosis. There is no mitral valve regurgitation. Tricuspid Valve There is no tricuspid valve regurgitation. No pulmonary hypertension, estimated pulmonary ar
[2023-05-09] MEDS: ALBUTEROL SULFATE NEB 2.5 MG/3 ML INH INHALATION ×4 (03:45→20:43)
[2023-05-09 04:51] LABS: Basophils Percent Auto 0.7 % (0.2-1.2); Eosinophils Absolute Auto 0.1 K/mm3 (0-0.3); Eosinophils Percent Auto 2.7 % (0-4.4); Hematocrit 35.2 % (42.0-52.0); Hemoglobin 10.6 g/dL (14.0-18.0); Immature Granulocyte Absolute 0.01 K/mm3 (0.00-0.031); Immature Granulocyte Percent A 0.2 % (0-0.5); Lymphocytes Absolute Auto 0.55 K/mm3 (0.9-3.2); Lymphocytes Percent Auto 13.4 % (18.3-44.2); Mean Corpuscular HGB Conc 30.1 g/dl (32-36); Mean Corpuscular Hemoglobin 28.3 pg (26-34); Mean Corpuscular Volume 94.1 fl (80-100); Mean Platelet Volume 10.9 fl (7.4-10.4); Monocytes Absolute Auto 0.5 K/mm3 (0.1-0.6); Monocytes Percent Auto 12.2 % (2.6-8.5); Neutrophils Absolute Auto 2.9 K/mm3 (1.3-6.7); Neutrophils Percent Auto 70.8 % (45.5-73.1); Platelet Count Result 131 k/mm3 (150-375); Red Blood Count 3.74 M/mm3 (4.6-6.20); Red Cell Distribution Width 15.2 % (11.5-14.5); White Blood Count 4.1 K/mm3 (4.5-10.0)
[2023-05-09 05:10] LABS: Alanine Aminotransferase 37 U/L (6-50); Albumin Level 3.9 g/dL (3.5-5.1); Alkaline Phosphatase 75 U/L (38-126); Anion Gap 7 mmol/L (8-16); Aspartate Amino Transferase 42 U/L (17-59); Bilirubin,Total 0.7 mg/dL (0.2-1.3); Blood Urea Nitrogen 18 mg/dL (9-20); CRP 0.9 mg/dL (<1.0); Calcium 9.2 mg/dL (8.4-10.2); Carbon Dioxide 36 mmol/L (22-30); Chloride 98 mmol/L (98-107); Estimated CRCL calculation 148 ml/min; Estimated Glomerular Filt Rate > 60; Glucose 191 mg/dL (65-110); Phosphorus 4.1 mg/dL (2.5-4.5); Potassium 3.8 mmol/L (3.4-5.0); Sodium 141 mmol/L (137-145)
--- NOTE | 2023-05-09 07:47 | PM.IMPN ---
Progress Note: A&P Assessment and Plan (1) Acute exacerbation of chronic obstructive pulmonary disease (COPD): Code(s): J44.1 - Chronic obstructive pulmonary disease with (acute) exacerbation Status: Acute (2) DM2 (diabetes mellitus, type 2): Qualifiers: Diabetes mellitus joint terminal attack controller insulin use: with detention use Diabetes mellitus complication status: with other specified complication Qualified Code(s): E11.69 - Type 2 diabetes mellitus with other specified complication; Z79.4 - intermodal owner operator truck driver (current) use of insulin Code(s): E11.9 - Type 2 diabetes mellitus without complications Status: Acute (3) HTN (hypertension): Qualifiers: Hypertension type: primary hypertension Qualified Code(s): I10 - Essential (primary) hypertension Code(s): I10 - Essential (primary) hypertension Status: Acute (4) CHF (congestive heart failure): Qualifiers: Heart failure type: unspecified Heart failure chronicity: acute on chronic Qualified Code(s): I50.9 - Heart failure, unspecified Code(s): I50.9 - Heart failure, unspecified Status: Acute (5) Iron deficiency anemia: Qualifiers: Iron deficiency anemia type: unspecified iron deficiency Qualified Code(s): D50.9 - Iron deficiency anemia, unspecified Code(s): D50.9 - Iron deficiency anemia, unspecified Status: Acute (6) Acute respiratory distress: Code(s): R06.03 - Acute respiratory distress Status: Acute Plan 73M w/ PMH JANETTE, HTN, DM, HF, COPD, NANETTE, obesity, HLD, PPM presents with acute respiratory distress from GI lab. # acute hypoxic hypercarbic respiratory failure - likely due to combination of COPD and CHF, NANETTE and maybe even OHS - resolved s/p treatment as below - chronic respiratory failure? placed on 4L nasal cannula last week after d/c from [place] with pneumonia. attempt to wean. thoracentesis and echo today # acute COPD - resolved. cont scheduled nebs through today - PCO2 52 on ABG. unclear baseline # acutely decompensated heart failure - resolved. unspecified type, pending echo - med changes - start jardiance and spironolactone. reduce lasix 40mg Iv BID to his daily 40mg qday. stop potassium and hydralazine. if reduced EF on echo, stop valsartan and start entresto, also stop isosorbide dinitrate and start metoprolol - 2000ml fluid restriction and daily weights, counseled on salt restriction, and fluid restriction (which he was unaware of previously) # b/l pleural effusions - L thoracentesis today 05/09 # PPM - v paced. unclear why he is taking eliquis, he reports his heart doctor started it. continue this # DM - accuchecks and sliding scale. HBA1c 6.5 - starting jardiance # HTN - meds adjusted as above. CTM # NANETTE - CPAP at night FEN: saline lock IV, thin liquid diet GI prophylaxis: protonix DVT prophylaxis: eliquis Lines: pIV Code Status: Full Code Dispo: stable More than 35 minutes spent on chart review, patient interaction and assessment and plan. Subjective Date/time seen: 05/09/23 07:47 Interval history: NAOE. patient is on his usual (recently placed) 4 L nasal cannula feeling without symptoms. he reports his leg swelling has gone done. he has been non compliant with fluid restriction up until now (he was unaware) Review of Systems Review of Systems: All systems reviewed & are unremarkable except as noted in HPI and below Exam Const: General: comfortable and no acute distress Other: A&Ox3 Eyes: Pupils: Equal, round and reactive pupils present Resp: Effort & Inspection: normal respiratory effort Auscultation: crackles (R>L, absent breath sounds at b/l bases) and diminished lung sounds Cardio: Rate: regular rate Rhythm: regular rhythm Heart sounds: no gallops, no murmurs and no rubs GI: Other: large abdominal pannus Extrem: General: edema (tight, chronic stasis thickening) Objective Data Vital Signs Vital
[2023-05-09 08:14] LABS: Glucose Point of Care 189 mg/dl (65-105)
[2023-05-09] MEDS: PANTOPRAZOLE 40 MG TABLET PO ×2 (10:00→21:05)
[2023-05-09] MEDS: VALSARTAN 160 MG TABLET 320 MG PO (10:00)
[2023-05-09] MEDS: SPIRONOLACTONE 25 MG TABLET PO (10:00)
[2023-05-09] MEDS: EMPAGLIFLOZIN 10 MG TABLET PO (10:00)
[2023-05-09] MEDS: ATORVASTATIN 20 MG TABLET PO (10:00)
[2023-05-09] MEDS: EUCERIN CREAM 120 GM JAR 1 APPLIC TOPICAL (10:54)
[2023-05-09] MEDS: ISOSORBIDE DINITRATE 10 MG TABLET PO ×3 (11:00→17:24)
[2023-05-09 12:35] LABS: Glucose Point of Care 181 mg/dl (65-105)
--- NOTE | 2023-05-09 13:49 | PC.NURSE ---
Patient transported to radiology for thoracentesis at 1350.
[2023-05-09] MEDS: PERFLUTREN LIPID MICROSPHERES 1.5 ML VIAL DILUTED TO 10 ML TOTAL VOLUME IV PUSH (15:30)
[2023-05-09 16:08] LABS: Appearance Pleural Fluid Cloudy (Clear); Color Pleural Fluid Yellow (Colorless); Lymphocytes Pleural Fluid 90 %; Neutrophils Pleural Fluid 8 % (0-25); Pleural fluid source Pleural fluid
[2023-05-09 16:09] LABS: Monocytes Pleural Fluid 2 %
--- NOTE | 2023-05-09 16:32 | IVDEFINITY ---
Prior to administration of IV Definity the patient was educated on the risks and benefits of the imaging enhancing agent including potential adverse side effects. The patient verbalized understanding. Allergies were verified. No exclusion criteria were identified and at least one of the following inclusion criteria were met: 1) physician request, 2) patient technically difficult to image (per the [place] [employer] guidelines of two or more segments not discernable within the apical view), or 3) questionable left ventricular function. ?
[2023-05-09 17:05] LABS: Glucose Point of Care 150 mg/dl (65-105)
[2023-05-09] MEDS: INSULIN GLARGINE (*BKC) 100 UNITS/ML 40 UNITS SUB-Q (17:24)
[2023-05-09 20:03] LABS: Glucose Point of Care 151 mg/dl (65-105)
[2023-05-09] MEDS: APIXABAN 5 MG TABLET PO (21:05)
[2023-05-10] VITALS (10 sets, daily range): BP systolic 125–130; BP diastolic 58–64; PULSE 70–85; RESP 18–20; TEMP 36.4–36.6; O2SAT 93–100
[2023-05-10] MEDS: ALBUTEROL SULFATE NEB 2.5 MG/3 ML INH INHALATION ×2 (02:31→09:37)
[2023-05-10 05:04] LABS: Hematocrit 34.2 % (42.0-52.0); Hemoglobin 10.1 g/dL (14.0-18.0); Mean Corpuscular HGB Conc 29.5 g/dl (32-36); Mean Corpuscular Volume 94.7 fl (80-100); Mean Platelet Volume 10.8 fl (7.4-10.4); Platelet Count Result 130 k/mm3 (150-375); Red Blood Count 3.61 M/mm3 (4.6-6.20); Red Cell Distribution Width 15.4 % (11.5-14.5); White Blood Count 3.8 K/mm3 (4.5-10.0)
[2023-05-10 05:21] LABS: Anion Gap 3 mmol/L (8-16); Blood Urea Nitrogen 15 mg/dL (9-20); Carbon Dioxide 37 mmol/L (22-30); Chloride 101 mmol/L (98-107); Estimated CRCL calculation 113 ml/min; Estimated Glomerular Filt Rate > 60; Glucose 167 mg/dL (65-110); Potassium 3.6 mmol/L (3.4-5.0); Sodium 141 mmol/L (137-145)
[2023-05-10 07:46] LABS: Glucose Point of Care 150 mg/dl (65-105)
[2023-05-10] MEDS: PANTOPRAZOLE 40 MG TABLET PO (08:59)
[2023-05-10] MEDS: VALSARTAN 160 MG TABLET 320 MG PO (08:59)
[2023-05-10] MEDS: ISOSORBIDE DINITRATE 10 MG TABLET PO (08:59)
[2023-05-10] MEDS: SPIRONOLACTONE 25 MG TABLET PO (08:59)
[2023-05-10] MEDS: INSULIN GLARGINE (*BKC) 100 UNITS/ML 40 UNITS SUB-Q (09:00)
[2023-05-10] MEDS: POLYSACCHARIDE IRON COMPLEX 150 MG CAPSULE PO (09:00)
[2023-05-10] MEDS: FUROSEMIDE 40 MG TABLET PO (09:00)
[2023-05-10] MEDS: EMPAGLIFLOZIN 10 MG TABLET PO (09:00)
[2023-05-10] MEDS: APIXABAN 5 MG TABLET PO (09:00)
[2023-05-10] MEDS: ATORVASTATIN 20 MG TABLET PO (09:00)
[2023-05-10] MEDS: EUCERIN CREAM 120 GM JAR 1 APPLIC TOPICAL (09:07)
--- NOTE | 2023-05-10 09:47 | PM.DS ---
DS: Admitting Diagnosis Discharge Date 05/10/23 Admitting Diagnosis respiratory distress DS: Discharge Diagnosis Discharge Diagnosis (1) CHF (congestive heart failure): Qualifiers: Heart failure type: unspecified Heart failure chronicity: acute on chronic Qualified Code(s): I50.9 - Heart failure, unspecified Code(s): I50.9 - Heart failure, unspecified Status: Acute DS: Summary Hospital Course Hospital Course: 73M w/ PMH JANETTE, HTN, IDDM, heart failure borderline reduced ejection fraction, chronic respiratory failure on 3L nasal cannula, COPD, NANETTE, obesity, HLD, PPM presents with acute respiratory distress from GI lab. He had a positive Cologuard and presented for a colonoscopy when he became short of breath while lying down. Mr Wetzel was treated with scheduled nebs for possible acute COPD, however the highest on his problems was acutely decompensated heart failure and b/l pleural effusions L>R. BNP on admission 1000, he was diuresed effectively with lasix 40mg BID and underwent a L thoracentesis with 1L fluid taken out. The next day, the day of discharge he is stable to go home and reporting greatly improved breathing. In fact, he had not laid down flat on a bed for 10 years and was able to do so after the thoracentesis. The pt was counseled extensively on adhering to fluid restriction, medications, lifestyle changes, and follow up with PCP and camera mechanic. The brother and nephew were present during this discussion. The pt was in understanding and agreement, and also knows to return to ER or call PCP if he has return or new symptoms. He will follow up with PCP in a week to follow up on pleural fluid studies, what appears to be chronic pancytopenia, and medication changes. He will also have repeat BMP in 1 week given medications were adjusted for reduced ejection fraction. He was counseled to monitor his blood sugars three times per day in light of diabetes medication changes and report numbers to PCP. follow up with camera mechanic in 2 weeks as well. Pt was full code during his stay here. More than 30 minutes spent on discharge planning and documentation. Time Spent with Patient Time attestation: Total time spent providing and/or coordinating discharge services: Exam Const: General: comfortable and no acute distress Other: A&Ox3. obese Eyes: Pupils: Equal, round and reactive pupils present Neck: Neck: supple Resp: Effort & Inspection: normal respiratory effort Auscultation: crackles (mild, at mid lungs b/l) and diminished lung sounds (R>L at bases) Cardio: Rate: regular rate Rhythm: regular rhythm Heart sounds: no gallops, no murmurs and no rubs GI: GI Palp: Yes Soft to palpation and No Tenderness to palpation present (GI) Extrem: General: edema (1+ pitting edema of b/l LE's superimposed on chronic stasis) DS: Data Data Completed and Pending Labs on day of discharge: Labs from last 24 hours 05/10/23 05/10/23 05/09/23 07:35 04:42 19:53 WBC 3.8 L RBC 3.61 L Hgb 10.1 L Hct 34.2 L MCV 94.7 MCH 28.0 MCHC 29.5 L RDW 15.4 H Plt Count 130 L MPV 10.8 H Sodium 141 Potassium 3.6 Chloride 101 Carbon Dioxide 37 H Anion Gap 3 L BUN 15 Creatinine 0.80 Estim Creat Clear Calc 113 Estimated GFR > 60 Glucose 167 H POC Capillary Glucose 150 H 151 H Calcium 9.0 Pleural Fluid Source Pleural Color Pleural Appearance Pleural RBC Pleural Nuc Cells Pleural Neutrophils Pleural Lymphocytes Pleural Monocytes Pleural Total Protein Pleural LDH Pleural Glucose Pleural Cholesterol 05/09/23 05/09/23 05/09/23 16:48 14:01 11:45 WBC RBC Hgb Hct MCV MCH MCHC RDW Plt Count MPV Sodium Potassium Chloride Carbon Dioxide Anion Gap BUN Creatinine Estim Creat Clear Calc Estimated GFR Glucose POC Capillary Glucose 150 H 18
[2023-05-15 20:31] LABS: Glucose Pleural Fluid 152 mg/dL; LDH Pleural Fluid 66 U/L; Total Protein Pleural Fluid 3.1 g/dL
== END 2023-05-10 11:40 | disposition home or self-care (01) | DRG 291 ==
LOC: ANHED 12:25 → ANHIMU 14:01 → ANHICU 14:36 → ANHIMU 05-09 03:42
PROVIDERS: Student in an Organized Health Care Education/Training Program; Admitting Provider Internal Medicine; Emergency Provider Emergency Medicine; PCP Internal Medicine; Visit Provider General Practice
DX: I11.0 Hypertensive heart disease with heart failure (principal); I50.23 Acute on chronic systolic (congestive) heart failure; J96.02 Acute respiratory failure with hypercapnia; J96.01 Acute respiratory failure with hypoxia; Z68.43 Body mass index [BMI] 50.0-59.9, adult; J90 Pleural effusion, not elsewhere classified; J44.1 Chronic obstructive pulmonary disease with (acute) exacerbation; J96.10 Chronic respiratory failure, unspecified whether with hypoxia or hypercapnia; D50.9 Iron deficiency anemia, unspecified; E11.9 Type 2 diabetes mellitus without complications; E66.9 Obesity, unspecified; E78.5 Hyperlipidemia, unspecified; G47.33 Obstructive sleep apnea (adult) (pediatric); I48.0 Paroxysmal atrial fibrillation; Z79.4 Long term (current) use of insulin; Z99.81 Dependence on supplemental oxygen; Z20.822 Contact with and (suspected) exposure to COVID-19; Z87.891 Personal history of nicotine dependence; Z99.89 Dependence on other enabling machines and devices; Z96.653 Presence of artificial knee joint, bilateral
CPT/HCPCS: 32555; 36415; 36600; 71045; 80048; 80053; 81001; 82375; 82805; 82945; 82948; 83036; 83050; 83605; 83615; 83735; 83880; 84100; 84157; 84311; 85025; 85027; 85055; 85610; 85730; 86140; 87637; 89051; 93005; 94640; 94660; 96374; 96376; 99215; 99285; A9270; C8929; G0378; G0463; J1815; J1940; J7120; Q9957

== ENCOUNTER 2024-01-08 08:41 | Emergency (ER) | payer MEDICARE, SELFPAY ==
--- NOTE | ~2024-01-08 | XR_ITS ---
EXAMINATION: XR chest 2V DATE: 01/08/2024 09:43 INDICATION: Right chest pain. TECHNIQUE: Frontal and lateral views of the chest were obtained. COMPARISON: Chest single view 05/09/2023, CT abdomen and pelvis 11/06/2020 FINDINGS: A calcified right lung nodule is consistent with old granulomatous disease. No pleural effu keenan or pneumothorax. The heart size is normal. There is prominent extrapleural fat bilaterally. Ther e is a left chest wall pacer with leads in the right atrium and right ventricle. There is mild chroni c anterior wedging of multiple thoracic vertebral bodies. IMPRESSION: 1. No acute cardiopulmonary disease. Reviewed, dictated and finalized at location A.
[2024-01-08 08:54] VITALS: BP 129/74; PULSE 84; PULSE 89; RESP 16; RESP 18; TEMP 36.6; O2SAT 96; O2SAT 98
--- NOTE | 2024-01-08 09:16 | ED.BACK ---
HPI - Back Pain/Injury General Chief Complaint: Back Pain/Injury Stated Complaint: rib pain since friday Time Seen by Provider: 01/08/24 08:47 History of Present Illness HPI Narrative: 73-year-old male presenting to the emergency department for evaluation for right-sided rib pain. Patient states few days ago he was in his car and leaned over to the right and injured his ribs. Patient states since this injury he has had increased pain with a deep inspiration and pain when turning to the right. Denies any change in shortness of breath. Patient does have COPD and does use oxygen intermittently but has not required the oxygen any more than usual. Related Data Home Medications Medication Instructions Recorded Confirmed apixaban 5 mg tablet (Eliquis) 5 mg PO BID 01/13/23 05/08/23 atorvastatin 20 mg tablet 20 mg PO DAILY 01/13/23 05/08/23 furosemide 40 mg tablet 40 mg PO DAILY 01/13/23 05/08/23 insulin glargine U-300 conc 300 40 unit subcut BID 01/13/23 05/08/23 unit/mL (3 mL) subcutaneous pen (Toujeo Max U-300 SoloStar) metformin 1,000 mg tablet 1,000 mg PO BID 01/13/23 05/08/23 pantoprazole 40 mg tablet,delayed 40 mg PO BID 05/08/23 05/08/23 release Allergies Allergy/AdvReac Type Severity Reaction Status Date / Time sitagliptin [From Junuvia] Allergy Swelling Verified 05/09/23 11:48 of Lip/Tongue/Throat Review of Systems Review of Systems: All systems reviewed & are unremarkable except as noted in HPI and below PMFSH Past Medical History Medical History (Updated 01/08/24 @ 10:28 by Alhaji Benitez MD) CHF (congestive heart failure) COPD (chronic obstructive pulmonary disease) DM2 (diabetes mellitus, type 2) Dyslipidemia Former smoker HTN (hypertension) Iron deficiency anemia NANETTE (obstructive sleep apnea) Surgical History Surgical History (Updated 05/08/23 @ 21:58 by Kaylan Aguirre APRN) History of knee replacement bilateral Social History Social History (Updated 05/08/23 @ 21:59 by Kaylan Aguirre APRN) Social History: Lives at home alone with his dog. . Elects Laura Goins, girlfriend, as surrogate decision maker. Code Status: Full Code. Smoking packs per day: 1 Smoking cigarettes per day: 20.0 Smoking status: Former smoker Tobacco type: cigarettes Smoking end date: 05/08/23 Alcohol intake: current Substance use: never Substance use type: does not use Do You Feel Safe in your Home?: Yes Lack of Transportation: No Lack of Food: Never True Current Housing: I Have Housing Concerned About Future Housing: No Difficulty Paying Gas/Electric Bills: No Difficulty Paying for Meds: No Currently Unemployed: No Education: High School Diploma/GED Difficulty w/ Childcare or Family Care: No Living arrangements: with family Spiritual care concerns: No Exam Narrative: APPEARANCE: Well appearing, no pain, no distress, well-nourished. HEAD: normocephalic, atraumatic. EYES: PERRLA/EOMI, conjunctivae clear. NOSE: Normal no drainage EARS:TMS clear with good light reflex. THROAT: Pharynx clear, no exudate. NECK: Supple. No adenopathy, no masses. RESPIRATORY: Airway patent, respirations nonlabored. Clear to auscultation bilaterally, no rales, rhonchi, wheezing. CARDIOVASCULAR: Regular rate and rhythm without murmurs rubs or gallops. ABDOMINAL: Soft, nontender, nondistended, normal bowel sounds MUSCULOSKELETAL: Ecchymosis on right lower ribs NEURO: Alert. Cranial nerves II through XII intact. Grossly intact SKIN: Warm, dry. Normal Color Course Course Emergency Course: Patient and family were updated the results of the x-rays and plan for treatment and follow-up Vital Signs Vital signs: Vital Signs Temperature 97.9 F 01/08/24 08:54 Pulse Rate 89 01/08/24 08:54 Respiratory Rate 18 01/08/24 08:54 Blood Pressure 129/74 01/08/24 08:54 Pulse Oximetry 98 01/08/24 08:54 Temperature 97.9 F
[2024-01-08 10:00] VITALS: BP 126/84; PULSE 86; RESP 18; TEMP 36.6; O2SAT 98
== END 2024-01-08 10:40 | disposition home or self-care (01) ==
PROVIDERS: Emergency Provider Emergency Medicine; PCP Internal Medicine
DX: S20.211A Contusion of right front wall of thorax, initial encounter (principal); I50.9 Heart failure, unspecified; I11.0 Hypertensive heart disease with heart failure; J44.9 Chronic obstructive pulmonary disease, unspecified; E78.5 Hyperlipidemia, unspecified; D50.9 Iron deficiency anemia, unspecified; G47.33 Obstructive sleep apnea (adult) (pediatric); Z96.653 Presence of artificial knee joint, bilateral; Z87.891 Personal history of nicotine dependence; Z79.01 Long term (current) use of anticoagulants; Z79.84 Long term (current) use of oral hypoglycemic drugs; Z79.4 Long term (current) use of insulin; X50.9XXA Other and unspecified overexertion or strenuous movements or postures, initial encounter
CPT/HCPCS: 71046; 99283